=== PATIENT | female | born 1995 | race Caucasian/White ===

== ENCOUNTER 2025-01-04 21:41 | Emergency (ER) | payer OTHER, SELFPAY ==
[2025-01-04 21:43] VITALS: BP 115/74; PULSE 67; RESP 18; TEMP 36.1; O2SAT 100
--- NOTE | 2025-01-04 22:44 | EKG12_ITS ---
Test Reason : DYSRHYTHMIA Blood Pressure : */* mmHG Vent. Rate : 63 BPM Atrial Rate : 63 BPM P-R Int : 148 ms QRS Dur : 84 ms QT Int : 422 ms P-R-T Axes : 49 51 23 degrees QTcB Int : 431 ms Normal sinus rhythm Low voltage QRS Nonspecific T wave abnormality Abnormal ECG Confirmed by MELODY BARBOZA, WENDI ([id number]), editor index KASSANDRA DOTY ([id number]) on 01/05/2025 8:20:58 AM Referred By: Santos Lindo Confirmed By: WENDI OLIVER MD
--- NOTE | 2025-01-04 22:44 | EX.ED.DYSGE1 ---
HPI History of Present Illness Chief Complaint: Syncope Detail of Chief Complaint: Near syncope Informant: patient Narrative Narrative: Patient presents to the emergency department with complaint of a near syncopal episode that occurred approximately 4:30 PM today. Patient states that she had laid down to rest and then when she got up she felt like her vision went black and then felt lightheaded and dizzy like she might pass out. Her symptoms lasted about 15 seconds. Patient checked her pulse and noted that it was in the 40s. She had similar episodes x 2 in the past. 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 She wore a heart monitor last year and she says that she had an irregular heartbeat but does not know what exactly. She otherwise has no significant medical history. She has not been ill recently. She tells me she is actually been feeling quite well. Currently just feels somewhat fatigued. She denies chest pain. She denies tachycardia. PFSH PFS Medical History unable to obtain Home Medications ?Medication ?Instructions ?Recorded ?Last Taken ?Type carvedilol 3.125 mg tablet 3.125 mg PO BID 01/04/25 Unknown History Allergy/AdvReac Type Severity Reaction Status Date / Time empagliflozin (From Allergy Low blood Verified 01/04/25 21:43 Jardiance) pressure gluten Allergy Abd Verified 01/04/25 21:43 cramps/diarrhea lisinopril Allergy Low blood Verified 01/04/25 21:43 pressure sacubitril (From Entresto) Allergy Other Verified 01/04/25 21:43 valsartan (From Entresto) Allergy Other Verified 01/04/25 21:43 Family History no significant family his Surgical History no surgical history Social History Smoking Status: Never smoker ROS ROS ED ROS Narrative Near syncope Review of Systems ROS Unobtainable: other Constitutional Constitutional ED: Reports lethargy; Denies chills, fever(s), sweats or weight loss Eyes Eyes: Denies blurry vision, change in vision or diplopia ENT ENT ED: Denies rhinorrhea or sore throat Cardiovascular Cardiovascular: Denies chest pain, orthopnea or racing heartbeat Respiratory/Chest Respiratory/Chest: Denies cough, dyspnea, dyspnea on exertion, orthopnea or sputum Gastrointestinal Gastrointestinal: Denies abdominal pain, diarrhea, nausea or vomiting Genitourinary Genitourinary ED: Denies dysuria, hematuria or urinary frequency Musculoskeletal Musculoskeletal: Denies arthralgias, back pain, myalgias or neck pain Integumentary Denies abscess, Abrasions or rash Neurologic Neurologic: Denies headache(s) or weakness Psychiatric Psychiatric: Denies anxiety, depression or suicidal thoughts Endocrine Endocrinology: Denies polydipsia, polyphagia or polyuria Hematologic/Lymphatic Hematologic/Lymphatic: Denies easy bleeding, easy bruising or lymphadenopathy Allergic/Immunologic Allergic/Immunologic ED: Denies mouth swelling, tongue swelling or urticaria EXAM Physical Exam Const Vital Signs: 01/04/25 21:43 01/04/25 21:53 01/04/25 23:41 Temperature 96.9 F L Temperature Source Temporal Pulse Rate 67 66 Pulse Rate [Lying] Pulse Rate [Sitting (for 1 minute prior to obtaining)] Pulse Rate [Standing (for 1 minute prior to obtaining)] Respiratory Rate 18 16 Respiratory Effort Normal Respiratory Pattern Normal Blood Pressure 115/74 96/60 Blood Pressure [Lying] Blood Pressure [Sitting (for 1 minute prior to obtaining)] Blood Pressure [Standing (for 1 minute prior to obtaining)] Blood Pressure Mean 87 72 Blood Pressure Mean [Lying] Blood Pressure Mean [Sitting (for 1 minute prior to obtaining)] Blood Pressure Mean [Standing (for 1 minute prior to obtaining)] Pulse Ox 100 95 Oxygen Delivery Method Room Air Room Air 01/05/25 00:00 Temperature Temperature Source Pulse Rate Pulse Rate [Lying] 71 Pulse Rate [Sitting (for 1 minute prior to obtaining)] 62 Pulse Rate [Standing (for 1 minute prior to obtaining)] 91 Respiratory Rate Respiratory Effort Respiratory Pattern Blood Pressure Blood Pressure [Lying] 100/64 Blood Pressure [Sitting (for 1 minute prior to obtaining)] 104/75 Blood Pressure [Standing (for 1 minute prior to obtaining)] 117/68 Blood Pressure Mean Blood Pressure Mean [Lying] 76 Blood Pressure Mean [Sitting (for 1 minute prior to obtaining)] 84 Blood Pressure Mean [Standing (for 1 minute prior to obtaining)] 84 Pulse Ox Oxygen Delivery Method Positive well nourished and well developed General Appearance ED: well developed and NAD HEENT Reports TM's clear and moist mucous membranes normocephalic and atraumatic; Negative for trauma or tenderness Tympanic Membrane ED: Yes TM's clear Eyes PERRL and EOMs intact bilaterally General Eye ED: Negative for pale conjunctiva or scleral icterus Neck no lymphadenopathy, supple and no JVD General: Negative for tenderness Chest Wall inspection of chest normal and palpation of chest normal Chest: Negative for tenderness Resp normal respiratory effort and clear to auscultation bilaterally Effort and Inspection: Negative for respiratory distress or pain with movement Auscultation: Negative for rhonchi, wheezes or diminished lung sounds Cardio regular rate, regular rhythm, S1 normal heart sound, S2 normal heart sound and no murmurs Peripheral Pulses: pulses 2+ throughout GI normal to inspection, nondistended, normoactive bowel sounds, soft to palpation, non-tender, non-distended and no masses Back/Spine no CVA tenderness and no thoracic nor lumbar tenderness Extremity normal to inspection General Extremety ED: Negative for edema General Extremity: Negative for edema Neuro oriented x3, CN's II-XII intact bilaterally, no sensory deficits noted and gait normal Sensorium / Orientation: awake, alert, oriented to person, oriented to place and oriented to time Motor Exam: strength 5/5 throughout and strength abnormal Psych mental status grossly normal Skin no rashes or lesions noted and no wounds MDM MDM MDM Narrative Medical decision making narrative: Patient presents with complaint of near syncope with symptoms that lasted about 15 seconds. She describes bradycardia with heart rate in the 40s. She is concerned because she has history of DSP gene mutation and can lead to arrhythmogenic rhythm issues that could be potentially life-threatening and is scheduled to have a ICD placed in February. On exam clinically she looks well. EKG obtained on arrival showed a sinus rhythm with ventricular rate of [address] changes. CBC with differential was unremarkable. Chemistries unremarkable. Troponin was normal at 11. hCG was negative. 1 view chest x-ray unremarkable. Orthostatic vital signs were negative. I did discuss case with talent sourcing specialist on-call at [facility] Dr. Daugherty who will discuss case with patient's talent sourcing specialist but did not feel patient needed any further intervention at this time and they will contact her directly. Patient comfortable with plan and will discharge to home. I suspect she may have had a vasovagal episode and do not feel she had any concerning or lethal type rhythm. Lab Data Attestation: I reviewed the patient's lab results. Labs: Laboratory Results - last 24 hr 01/04/25 22:02 WBC 7.7 RBC 4.16 L Hgb 12.7 Hct 37.7 MCV 90.6 MCH 30.5 MCHC 33.7 RDW Std Deviation 42.8 RDW Coeff of [place] 13.0 Plt Count 204 MPV 12.1 H Immature Gran % (Auto) 0.100 Neut % (Auto) 49.9 Lymph % (Auto) 38.1 [place] % (Auto) 8.1 Eos % (Auto) 3.1 Baso % (Auto) 0.7 Absolute Neuts (auto) 3.8 Absolute Lymphs (auto) 2.93 Nucleated RBC % 0 Sodium 139 Potassium 3.5 Chloride 100 Carbon Dioxide 25.9 Anion Gap 13 BUN 18 Creatinine 0.91 Estim Creat Clear Calc 116.71 Est GFR (MDRD) Non-Af 87 BUN/Creatinine Ratio 20.1 H Glucose 90 Calcium 9.4 Troponin T High Sens 11 Serum , Qual NEGATIVE Radiography Diagnostic Testing: Clinical Impression(s) from Imaging Studies Chest X-Ray 01/04/25 22:50 IMPRESSION: No Acute Findings. Reading Location: [facility] 1 view chest x-ray obtained interpreted by myself as no evidence of infiltrate or pneumothorax or acute disease process. Radiology in agreement. EKG Initial EKG: Attestation: I personally reviewed and interpreted this EKG as follows: Comments: Sinus rhythm with ventricular rate of [address] changes Discharge Plan Triage Chief Complaint: Syncope ED Provider: Santos Lindo Dx/Rx/DC Orders Clinical Impression: Near syncope Instructions: ED Near-Fainting, Uncertain Cause, ED Near-Fainting- Vagal Reaction, Arrhythmias Prescriptions: No Action carvedilol 3.125 mg tablet 3.125 mg PO BID Rx Instructions: must administer with a meal/food Primary Care Provider: Sanford Turk Referrals: Sanford Turk DO [Primary Care Provider] - Activity Restrictions/Additional Instructions: Follow-up with your talent sourcing specialist within the next 3 to 4 days. They should be reaching out to contact you. Print Language: Latvian Disposition Disposition: Home, Self Care
--- NOTE | 2025-01-04 22:50 | RAD_ITS ---
PROCEDURE: CHEST 1 VIEW (PORTABLE) 01/04/2025 REASON FOR EXAM: NEAR SYNCOPE TECHNIQUE: Frontal view of the chest. COMPARISON: None FINDINGS: Hardware: None Heart: Cardiac and mediastinal contours are stable. Lungs: No focal consolidation. No pneumothorax. No pleural effusion. Bones: The bones are unremarkable. Other: RAD/Chest 1 View (Portable) IMPRESSION: No Acute Findings. Reading Location: [facility]
[2025-01-04 23:00] LABS: Absolute Lymphocyte Count 2.93 X10^3/uL (0.83-4.51); Absolute Neutrophil Count 3.8 X10^3/uL (2.0-7.7); Basophil# 0.05 X10^3/uL; Basophil% 0.7 % (0-1); Eosinophil# 0.24 X10^3/uL; Eosinophils% 3.1 % (0-5); Hematocrit 37.7 % (37-47); Hemoglobin 12.7 g/dL (12.0-15.0); Lymphocyte # 2.93 X10^3/ul (0.83-4.51); Lymphocyte % 38.1 % (19-41); Mean Corp Hgb Conc 33.7 g/dL (32-36); Mean Corpuscular Hgb 30.5 pg (27.0-32.0); Mean Corpuscular Volume 90.6 fL (81-99); Mean Platelet Vol. 12.1 fl (6.2-12.0); Monocyte# 0.62 X10^3/uL; Monocyte% 8.1 % (0-10); NRBC Flagged by Analyzer 0 % (0-5); Neutrophil # 3.84 X10^3/uL (2.7-7.7); Neutrophil % 49.9 % (47-70); Platelet Count 204 K/mm3 (150-450); RBC Distribution Width SD 42.8 fl (35.1-43.9); Red Blood Count 4.16 M/mm3 (4.2-5.4); White Blood Count 7.7 K/mm3 (4.4-11.0)
[2025-01-04 23:17] LABS: Internal QC Validated? YES +Cl - CLEAR BKGD; Pregnancy, Serum, hCG Quali. NEGATIVE Negative
[2025-01-04 23:41] VITALS: BP 96/60; PULSE 66; RESP 16; O2SAT 95
[2025-01-05] VITALS: BP 100/64; BP 104/75; BP 117/68; PULSE 62; PULSE 71; PULSE 91
[2025-01-05 00:03] LABS: Anion Gap 13 (5-15); BUN 18 mg/dL (4-19); BUN/Creat Ratio 20.1 RATIO (10-20); Calcium,Total 9.4 mg/dL (7.6-11.0); Carbon Dioxide 25.9 mmol/L (21.0-32.0); Chloride 100 mmol/L (98-108); Creatinine, Serum 0.91 mg/dL (0.70-1.20); EST Glomerular Filtration Rate 87 (>60); Estimated Creatinine Clearance 116.71 ml/min (50-250); Glucose 90 mg/dL (70-99); Potassium 3.5 mmol/L (3.3-5.1); Sodium Level 139 mmol/L (133-145); Troponin T High Sensitivity 11 ng/L (<=14)
[2025-01-05 00:30] VITALS: BP 104/63; PULSE 83; RESP 16; TEMP 36.7; O2SAT 100
== END 2025-01-05 00:34 | disposition home or self-care (01) ==
PROVIDERS: Emergency Provider Emergency Medicine; PCP Family Medicine; Referring Provider Emergency Medicine; Visit Provider Emergency Medicine
DX: R55 Syncope and collapse (principal)
CPT/HCPCS: 71045; 80048; 84484; 84703; 85025; 93005; 99284